=== PATIENT | female | born 1995 | race Caucasian/White ===

== ENCOUNTER 2022-05-01 11:29 | Emergency (ER) | payer BC, SELFPAY ==
--- NOTE | ~2022-05-01 | CT_ITS ---
EXAMINATION: CTA chest PE protocol DATE: 05/01/2022 15:32 INDICATION: 7weeks ; pleuritic R sided chest pain TECHNIQUE: Computed tomography angiography (CTA) of the chest was performed with 100 mL Omnipaque-350 intravenous contrast timed to evaluate the pulmonary arteries. Coronal maximum intensity projection 3D-reconstructions were created by the technologist. The dose-length product (DLP) was 760.91 mGy-cm. Automated exposure control and iterative reconstruction technique were employed. COMPARISON: None. FINDINGS: Lung parenchyma and airways: Patchy subsegmental groundglass opacities in the right lower lobe, with bandlike atelectasis. Minimal dependent left lower lobe atelectasis. Pleura: Small volume right pleural fluid collection. Thoracic inlet, axillae and chest wall: Unremarkable. Thoracic aorta: Normal. Mediastinum: Residual thymic tissue. Left hilar lymph nodes are present, not pathologic based on size criteria. No mediastinal lymphadenopathy. Heart and pericardium: Normal. Coronary artery calcifications: Absent. Upper abdomen: No significant finding. Bones: No acute osseous finding. Pulmonary arteries: Study quality: Study limited by beam hardening, quantum mottle, and borderline en hancement. No definite pulmonary emboli detected. IMPRESSION: Moderately limited study as detailed above, within those constraints, no definite CT evidence of acut e pulmonary embolus. Small right pleural effusion. Bibasilar atelectasis, greater in the right lower lobe. Reviewed, dictated and finalized at location [facility] [employer] IMPRESSION: Moderately limited study as detailed above, within those constraints, no defini te CT evidence of acute pulmonary embolus. Small right pleural effusion. Bibasi lar atelectasis, greater in the right lower lobe.
[2022-05-01 11:45] VITALS: BP 145/76; PULSE 88; RESP 16; TEMP 37.1; O2SAT 96
[2022-05-01 12:46] LABS: Basophils Percent Auto 0.2 % (0.2-1.2); Eosinophils Absolute Auto 0.1 K/mm3 (0-0.3); Eosinophils Percent Auto 1.1 % (0-4.4); Hemoglobin 13.3 g/dL (12.0-15.0); Immature Granulocyte Absolute 0.04 K/mm3 (0.00-0.031); Immature Granulocyte Percent A 0.4 % (0-0.5); Lymphocytes Absolute Auto 1.93 K/mm3 (0.9-3.2); Lymphocytes Percent Auto 19.9 % (18.3-44.2); Mean Corpuscular HGB Conc 33.3 g/dl (32-36); Mean Corpuscular Hemoglobin 28.1 pg (26-34); Mean Corpuscular Volume 84.6 fl (80-100); Mean Platelet Volume 9.7 fl (7.4-10.4); Monocytes Absolute Auto 0.8 K/mm3 (0.1-0.6); Monocytes Percent Auto 8.4 % (2.6-8.5); Neutrophils Absolute Auto 6.8 K/mm3 (1.3-6.7); Platelet Count Result 346 k/mm3 (150-375); Red Blood Count 4.73 M/mm3 (4.2-5.4); White Blood Count 9.7 K/mm3 (4.5-10.0)
[2022-05-01 12:52] LABS: Appearance Urine Cloudy (Clear); Bacteria Urine 3+ /hpf; Bilirubin Urine Negative (Negative); Blood Urine Negative (Negative); Color Urine Yellow (Yellow); Glucose Urine UA Negative (Negative); Ketones Urine Negative (Negative); Leukocyte Esterase Ur 1+ LEU/UL (Negative); Nitrate Urine Negative (Negative); Non Pathogenic Casts 0-2; Protein Urine Negative (Negative); Specific Grav Ur 1.013 (1.001-1.035); Squamous Epithelial Cell Urine Moderate /hpf (Few); Urobilinogen Urine 0.2 mg/dL (<2.0); pH Urine 6.5 (5.0-9.0)
[2022-05-01 13:00] LABS: Add Urine Microscopic? YES
[2022-05-01 13:03] LABS: Alanine Aminotransferase 27 U/L (6-35); Albumin Level 4.1 g/dL (3.5-5.1); Alkaline Phosphatase 59 U/L (38-126); Anion Gap 5 mmol/L (8-16); Aspartate Amino Transferase 23 U/L (14-36); Bilirubin,Total 0.4 mg/dL (0.2-1.3); Blood Urea Nitrogen 9 mg/dL (7-17); Calcium 8.8 mg/dL (8.4-10.2); Carbon Dioxide 23 mmol/L (22-30); Chloride 105 mmol/L (98-107); Estimated CRCL calculation 168 ml/min; Estimated Glomerular Filt Rate > 60; Glucose 97 mg/dL (65-110); Lipase 36 U/L (23-300); Potassium 3.5 mmol/L (3.4-5.0); Sodium 133 mmol/L (137-145)
--- NOTE | 2022-05-01 14:39 | ED.ABDPAIN ---
HPI - Abdominal Pain General Chief Complaint: Abdominal Pain Stated Complaint: RUQ pain Time Seen by Provider: 05/01/22 14:16 History of Present Illness HPI narrative: Patient is a 27-year-old female at approximately 7 weeks gestation presenting with right-sided chest pain. Patient states that since yesterday she has had right-sided chest pain that radiates into her right shoulder. States it is worse with deep breathing. She denies dyspnea but states that it feels difficult to take a deep breath because of the pain. No fevers or chills, cough, lightheadedness, abdominal pain, vomiting, diarrhea, dysuria, leg swelling. Denies vaginal bleeding. Related Data Allergies Allergy/AdvReac Type Severity Reaction Status Date / Time ciprofloxacin Allergy Unknown Anaphylaxis Verified 05/01/22 15:14 Review of Systems Review of Systems: All systems reviewed & are unremarkable except as noted in HPI and below PMFSH Family History Family History Other Carcinoma of colon Hypertension Social History Social History Smoking status: Never smoker Alcohol intake: current Exam Narrative: GENERAL: Well-appearing, well-nourished, and in no acute distress. HEAD: Normocephalic, atraumatic. EYES: PERRLA and EOMI. ENT: Nares clear, no rhinorrhea or epistaxis. Mucous membranes moist. NECK: Supple. CHEST: Clear to auscultation. No respiratory distress. No chest wall tenderness HEART: Regular rate and rhythm. No murmur heard. Normal peripheral pulses. ABDOMEN: Soft, nontender, nondistended EXTREMITIES: Normal range of motion. No edema. SKIN: Warm, dry, no rash. NEURO: No focal deficits. Alert and oriented x3. PSYCH: Normal mood and affect. Course Vital Signs Vital signs: Vital Signs Temperature 98.7 F 05/01/22 11:45 Pulse Rate 88 05/01/22 11:45 Respiratory Rate 16 05/01/22 11:45 Blood Pressure 145/76 H 05/01/22 11:45 Pulse Oximetry 96 05/01/22 11:45 Temperature 98.7 F 05/01/22 11:45 Pulse Rate 78 05/01/22 16:55 Respiratory Rate 16 05/01/22 16:55 Blood Pressure 139/75 05/01/22 16:55 Pulse Oximetry 98 05/01/22 16:55 MDM - Abdominal Pain MDM Narrative Medical decision making narrative: Patient is a 27-year-old female at approximately 7 weeks gestation presenting with right-sided pleuritic chest pain. Patient is slightly hypertensive, otherwise vitals are within normal limits. Exam remarkable for the above. Discussed with the patient that does increase risk of blood clots and the concern for possible PE with pleuritic chest pain. Discussed the risks and benefits of CTA and patient is agreeable to a CT at this time. CTA shows no pulmonary embolus. There is a small pleural effusion on the right. Blood work is unremarkable. UA is contaminated. Patient denies any urinary symptoms. Discussed the work-up with the patient and advised that she follow-up closely with PCP and ASTRONOMY INSTRUCTOR. Appropriate return precautions were given. Patient voiced understanding and is agreeable with plan. Discharged in stable condition. Differential Diagnosis Differential diagnosis: Likely other (pneumonia, PE, costochondritis, pleural effusion) Lab Data 05/01/22 12:33 05/01/22 12:33 Labs: Lab Results 05/01/22 05/01/22 05/01/22 Range/Units 12:28 12:33 12:33 WBC 9.7 (4.5-10.0) K/mm3 RBC 4.73 (4.2-5.4) M/mm3 Hgb 13.3 (12.0-15.0) g/dL Hct 40.0 (37.0-47.0) % MCV 84.6 (80-100) fl MCH 28.1 (26-34) pg MCHC 33.3 (32-36) g/dl RDW 14.0 (11.5-14.5) % Plt Count 346 (150-375) k/mm3 MPV 9.7 (7.4-10.4) fl Immature Gran % (Auto) 0.4 (0-0.5) % Neut % (Auto) 70.0 (45.5-73.1) % Lymph % (Auto) 19.9 (18.3-44.2) % [place] % (Auto) 8.4 (2.6-8.5) % Eos % (Auto) 1.1 (0-4.4) % Baso % (Auto) 0.2 (0.2-1.2) %
[2022-05-01 16:55] VITALS: BP 139/75; PULSE 78; RESP 16; O2SAT 98
== END 2022-05-01 16:56 | disposition home or self-care (01) ==
PROVIDERS: Preventive Medicine Aerospace Medicine; Emergency Provider Emergency Medicine
DX: O99.511 Diseases of the respiratory system complicating pregnancy, first trimester (principal); J90 Pleural effusion, not elsewhere classified; O99.411 Diseases of the circulatory system complicating pregnancy, first trimester; R07.9 Chest pain, unspecified; O09.91 Supervision of high risk pregnancy, unspecified, first trimester; I10 Essential (primary) hypertension; Z85.038 Personal history of other malignant neoplasm of large intestine; Z3A.01 Less than 8 weeks gestation of pregnancy
CPT/HCPCS: 36415; 71275; 80053; 81001; 83690; 84702; 85025; 87086; 87088; 99284; Q9967

== ENCOUNTER 2022-05-27 08:08 | Outpatient (CLI) | payer BC, SELFPAY ==
[2022-05-27 09:40] LABS: Basophils Percent Auto 0.3 % (0.2-1.2); Eosinophils Absolute Auto 0.1 K/mm3 (0-0.3); Eosinophils Percent Auto 1.1 % (0-4.4); Hematocrit 42.9 % (37.0-47.0); Hemoglobin 13.9 g/dL (12.0-15.0); Immature Granulocyte Absolute 0.05 K/mm3 (0.00-0.031); Immature Granulocyte Percent A 0.5 % (0-0.5); Lymphocytes Absolute Auto 1.85 K/mm3 (0.9-3.2); Lymphocytes Percent Auto 20.3 % (18.3-44.2); Mean Corpuscular HGB Conc 32.4 g/dl (32-36); Mean Corpuscular Hemoglobin 28.2 pg (26-34); Mean Platelet Volume 9.7 fl (7.4-10.4); Monocytes Absolute Auto 0.5 K/mm3 (0.1-0.6); Monocytes Percent Auto 5.7 % (2.6-8.5); Neutrophils Absolute Auto 6.6 K/mm3 (1.3-6.7); Neutrophils Percent Auto 72.1 % (45.5-73.1); Platelet Count Result 322 k/mm3 (150-375); Red Blood Count 4.93 M/mm3 (4.2-5.4); Red Cell Distribution Width 13.8 % (11.5-14.5); White Blood Count 9.1 K/mm3 (4.5-10.0)
[2022-05-27 10:30] LABS: Glucose 1 Hour PP 50gm Dose 96 mg/dL
[2022-05-27 10:40] LABS: HIV 1/2 Ab P24 Ag Result Negative (Negative)
[2022-05-27 12:52] LABS: Hepatitis B Surface Antigen Negative (Negative)
[2022-05-29 13:48] LABS: Rapid Plasma Reagin Non-Reactive (NonReactive)
[2022-05-30 09:06] LABS: Varicella IgG Antibody <135.00 Index (>=165.00)
[2022-05-31 14:12] LABS: CMV IgG Antibody <0.60 U/mL (<0.60)
== END 2022-05-27 08:09 | disposition home or self-care (01) ==
LOC: ANHLAB 08:09
PROVIDERS: Visit Provider Student in an Organized Health Care Education/Training Program
DX: N94.89 Other specified conditions associated with female genital organs and menstrual cycle (principal)
CPT/HCPCS: 36415; 82947; 84702; 85025; 86592; 86644; 86703; 86747; 86762; 86787; 86850; 86900; 86901; 87086; 87340; G0432

== ENCOUNTER 2022-09-04 14:22 | Outpatient (CLI) | payer BC, SELFPAY ==
[2022-09-04 15:02] LABS: Alanine Aminotransferase 22 U/L (6-35); Albumin Level 3.7 g/dL (3.5-5.1); Alkaline Phosphatase 79 U/L (38-126); Anion Gap 7 mmol/L (8-16); Aspartate Amino Transferase 22 U/L (14-36); Bilirubin,Total 0.2 mg/dL (0.2-1.3); Blood Urea Nitrogen 3 mg/dL (7-17); Carbon Dioxide 23 mmol/L (22-30); Chloride 107 mmol/L (98-107); Estimated Glomerular Filt Rate > 60; Glucose 95 mg/dL (65-110); Potassium 3.4 mmol/L (3.4-5.0); Sodium 137 mmol/L (137-145)
[2022-09-08 15:07] LABS: Chenodeoxycholic Acid 0.7 umol/L (< OR = 3.9); Cholic Acid <0.5 umol/L (< OR = 2.8); Deoxycholic Acid <0.5 umol/L (< OR = 2.3); Total Bile Acids <1.5 umol/L (< OR = 8.3)
== END 2022-09-04 14:23 | disposition home or self-care (01) ==
LOC: ANHLAB 14:23
PROVIDERS: Visit Provider Student in an Organized Health Care Education/Training Program
DX: L29.9 Pruritus, unspecified (principal); O99.719 Diseases of the skin and subcutaneous tissue complicating pregnancy, unspecified trimester; Z3A.00 Weeks of gestation of pregnancy not specified
CPT/HCPCS: 36415; 80053; 82542

== ENCOUNTER 2022-10-07 08:28 | Outpatient (CLI) | payer BC, SELFPAY ==
[2022-10-07 10:26] LABS: Hematocrit 39.4 % (37.0-47.0); Hemoglobin 12.6 g/dL (12.0-15.0); Mean Corpuscular Hemoglobin 28.1 pg (26-34); Mean Corpuscular Volume 87.8 fl (80-100); Mean Platelet Volume 9.7 fl (7.4-10.4); Platelet Count Result 318 k/mm3 (150-375); Red Blood Count 4.49 M/mm3 (4.2-5.4); Red Cell Distribution Width 14.3 % (11.5-14.5); White Blood Count 9.8 K/mm3 (4.5-10.0)
[2022-10-07 10:42] LABS: Glucose 1 Hour PP 50gm Dose 130 mg/dL
[2022-10-07 11:23] LABS: HIV 1/2 Ab P24 Ag Result Negative (Negative)
== END 2022-10-07 08:29 | disposition home or self-care (01) ==
PROVIDERS: Visit Provider Student in an Organized Health Care Education/Training Program
DX: Z34.90 Encounter for supervision of normal pregnancy, unspecified, unspecified trimester (principal); Z3A.00 Weeks of gestation of pregnancy not specified
CPT/HCPCS: 36415; 82947; 85027; 86703; G0432

== ENCOUNTER 2022-11-20 11:45 | Outpatient (CLI) | payer BC, SELFPAY ==
[2022-11-20 12:15] VITALS: BP 149/98; PULSE 84
[2022-11-20 12:30] VITALS: BP 143/85; PULSE 72
[2022-11-20 12:57] LABS: Basophils Percent Auto 0.3 % (0.2-1.2); Eosinophils Absolute Auto 0.1 K/mm3 (0-0.3); Eosinophils Percent Auto 1.3 % (0-4.4); Hematocrit 39.1 % (37.0-47.0); Hemoglobin 12.7 g/dL (12.0-15.0); Immature Granulocyte Absolute 0.07 K/mm3 (0.00-0.031); Immature Granulocyte Percent A 0.7 % (0-0.5); Lymphocytes Absolute Auto 1.82 K/mm3 (0.9-3.2); Lymphocytes Percent Auto 19.1 % (18.3-44.2); Mean Corpuscular HGB Conc 32.5 g/dl (32-36); Mean Corpuscular Hemoglobin 28.5 pg (26-34); Mean Corpuscular Volume 87.9 fl (80-100); Mean Platelet Volume 10.7 fl (7.4-10.4); Monocytes Absolute Auto 0.8 K/mm3 (0.1-0.6); Monocytes Percent Auto 8.3 % (2.6-8.5); Neutrophils Absolute Auto 6.7 K/mm3 (1.3-6.7); Neutrophils Percent Auto 70.3 % (45.5-73.1); Platelet Count Result 289 k/mm3 (150-375); Red Blood Count 4.45 M/mm3 (4.2-5.4); Red Cell Distribution Width 14.1 % (11.5-14.5); White Blood Count 9.5 K/mm3 (4.5-10.0)
[2022-11-20 13:00] VITALS: BP 145/91; PULSE 69
[2022-11-20 13:04] LABS: Add Urine Microscopic? YES; Appearance Urine Cloudy (Clear); Bacteria Urine 2+ /hpf; Bilirubin Urine Negative (Negative); Blood Urine Negative (Negative); Color Urine Yellow (Yellow); Creatinine Urine 49.5 mg/dL; Glucose Urine UA Negative (Negative); Ketones Urine Trace mg/dL (Negative); Leukocyte Esterase Ur 3+ LEU/UL (NEGATIVE); Nitrate Urine Negative (Negative); Non Pathogenic Casts 0-2; Protein Urine Negative (Negative); RBC Urine 0-2 /hpf (0-2); Specific Grav Ur 1.008 (1.001-1.035); Squamous Epithelial Cell Urine Moderate /hpf (Few); Total Protein Urine Random 29 mg/dL; Ur Ttl Prot Creatinine Ratio 0.59 mg/mg (0-0.20); Urobilinogen Urine 0.2 mg/dL (<2.0); WBC Urine 21-50 /hpf (0-3)
[2022-11-20 13:07] LABS: Alanine Aminotransferase 14 U/L (6-35); Albumin Level 3.4 g/dL (3.5-5.1); Alkaline Phosphatase 106 U/L (38-126); Anion Gap 4 mmol/L (8-16); Aspartate Amino Transferase 21 U/L (14-36); Bilirubin,Total 0.3 mg/dL (0.2-1.3); Blood Urea Nitrogen 4 mg/dL (7-17); Calcium 8.9 mg/dL (8.4-10.2); Carbon Dioxide 25 mmol/L (22-30); Chloride 106 mmol/L (98-107); Estimated Glomerular Filt Rate > 60; Glucose 74 mg/dL (65-110); Potassium 3.9 mmol/L (3.4-5.0); Sodium 135 mmol/L (137-145); Uric Acid 4.6 mg/dL (2.5-7.5)
[2022-11-20 13:16] VITALS: BP 142/88; PULSE 71
[2022-11-20 13:30] VITALS: BP 143/86; PULSE 77
[2022-11-20 13:36] VITALS: BP 149/98; PULSE 82
== END 2022-11-20 13:36 | disposition home or self-care (01) ==
LOC: ANHOBOP 11:51 → ANHOBPP 11:51
PROVIDERS: Visit Provider Student in an Organized Health Care Education/Training Program
DX: R03.0 Elevated blood-pressure reading, without diagnosis of hypertension (principal); R60.9 Edema, unspecified
CPT/HCPCS: 36415; 59025; 80053; 81001; 81050; 82570; 82575; 84156; 84550; 85025; 87086; 99199

== ENCOUNTER 2022-11-21 12:43 | Outpatient (NON) | payer BC, SELFPAY ==
[2022-11-21 12:43] VITALS: BMI 47.5
[2022-11-21 13:41] LABS: Collection Time Urine 24 HOURS
[2022-11-21 13:51] LABS: Total Volume 24 Hour Urine 2500 ml
[2022-11-21 13:57] LABS: Creatinine Clearance Urine 159.6 ml/min (75-125); Creatinine Urine 56.6 mg/dL; Patient Weight 260 Lbs
[2022-11-21 15:28] LABS: Total Protein Urine 24 Hr 390 mg/24hr (0-149); Total Protein Urine Random 15.6 mg/dL (0.0-11.9)
== END 2022-11-21 12:44 | disposition home or self-care (01) ==
LOC: ANHOBOP 12:51
PROVIDERS: Visit Provider Student in an Organized Health Care Education/Training Program
DX: R03.0 Elevated blood-pressure reading, without diagnosis of hypertension (principal); O26.899 Other specified pregnancy related conditions, unspecified trimester
CPT/HCPCS: 81050; 82575; 84156

== ENCOUNTER 2022-11-27 10:22 | Outpatient (RCR) | payer BC, SELFPAY ==
[2022-11-23 11:06] VITALS: BP 126/79; PULSE 75
[2022-11-27 10:56] VITALS: BP 136/91; PULSE 79
== END 2023-01-18 11:22 | disposition home or self-care (01) ==
LOC: ANHOBOP 10:22
PROVIDERS: Visit Provider Student in an Organized Health Care Education/Training Program
DX: O14.93 Unspecified pre-eclampsia, third trimester (principal); O26.03 Excessive weight gain in pregnancy, third trimester; Z3A.36 36 weeks gestation of pregnancy
CPT/HCPCS: 59025

== ENCOUNTER 2022-11-28 16:51 | Inpatient (IN) | payer BC, SELFPAY ==
[2022-11-28] VITALS (25 sets, daily range): BP systolic 123–179; BP diastolic 67–100; PULSE 80–106; TEMP 36.2–36.4; O2SAT 98; BMI 49.1
[2022-11-28] MEDS: DINOPROSTONE 10 MG VAG INSERT VAGINAL (17:34)
[2022-11-28 17:37] LABS: Basophils Percent Auto 0.3 % (0.2-1.2); Eosinophils Absolute Auto 0.1 K/mm3 (0-0.3); Eosinophils Percent Auto 1.1 % (0-4.4); Hematocrit 38.1 % (37.0-47.0); Hemoglobin 12.4 g/dL (12.0-15.0); Immature Granulocyte Absolute 0.06 K/mm3 (0.00-0.031); Immature Granulocyte Percent A 0.5 % (0-0.5); Lymphocytes Absolute Auto 2.17 K/mm3 (0.9-3.2); Lymphocytes Percent Auto 18.9 % (18.3-44.2); Mean Corpuscular HGB Conc 32.5 g/dl (32-36); Mean Corpuscular Hemoglobin 28.3 pg (26-34); Mean Platelet Volume 10.7 fl (7.4-10.4); Monocytes Absolute Auto 0.8 K/mm3 (0.1-0.6); Monocytes Percent Auto 6.5 % (2.6-8.5); Neutrophils Absolute Auto 8.3 K/mm3 (1.3-6.7); Neutrophils Percent Auto 72.7 % (45.5-73.1); Platelet Count Result 278 k/mm3 (150-375); Red Blood Count 4.38 M/mm3 (4.2-5.4); Red Cell Distribution Width 14.3 % (11.5-14.5); White Blood Count 11.5 K/mm3 (4.5-10.0)
--- NOTE | 2022-11-28 17:44 | LDADM ---
This patient, Chacha Ortega, was admitted to Labor/Delivery/Recovery 108 on 11/28/22 at 16:51. Plans for labor, pain management and were discussed with patient. Patient/family oriented to hospital policies and general routines including ID bracelet, bed and alarms, visiting hours, pain management, procedures, bathroom and other care routines, personal items, smoking policy, room service/diet and guest tray routines, security routines, and visiting hours. Patient/Family are encouraged to report perceived risks to care and to ask questions if they do not understand what they are told or what they should do. See OBIX for further documentation.
[2022-11-28 17:51] LABS: Alanine Aminotransferase 16 U/L (6-35); Albumin Level 3.4 g/dL (3.5-5.1); Alkaline Phosphatase 107 U/L (38-126); Anion Gap 7 mmol/L (8-16); Aspartate Amino Transferase 23 U/L (14-36); Bilirubin,Total 0.3 mg/dL (0.2-1.3); Blood Urea Nitrogen 4 mg/dL (7-17); Calcium 8.6 mg/dL (8.4-10.2); Carbon Dioxide 21 mmol/L (22-30); Chloride 106 mmol/L (98-107); Estimated CRCL calculation 213 ml/min; Estimated Glomerular Filt Rate > 60; Glucose 104 mg/dL (65-110); Potassium 3.4 mmol/L (3.4-5.0); Sodium 134 mmol/L (137-145)
[2022-11-28 17:52] LABS: Uric Acid 4.6 mg/dL (2.5-7.5)
--- NOTE | 2022-11-28 19:24 | WPDANESEPP ---
Anes - Eval Pre Procedure Procedure: labor epidural Date/Time: 11/28/22 19:24 Pre Op Diagnosis: IOL Patient Data Age: 27 Gender: F Height: 1.57 m Weight: 122 kg Last Vital Signs Temp 36.2 C L 11/28/22 18:05 Pulse 83 11/28/22 19:01 BP 167/93 H 11/28/22 19:01 Pulse Ox 98 11/28/22 18:38 O2 Del Method Room Air 11/28/22 17:43 Allergies Allergy/AdvReac Type Severity Reaction Status Date / Time ciprofloxacin Allergy Severe Anaphylaxis Verified 11/25/22 15:20 Home Medications Medication Instructions Recorded Confirmed Type vitamins-iron fumarate 65 1 tablet PO DAILY 08/15/22 11/25/22 History mg iron-folic acid 1 mg tablet Laboratory Tests 11/28/22 17:03 WBC 11.5 H K/mm3 (4.5-10.0) RBC 4.38 M/mm3 (4.2-5.4) Hgb 12.4 g/dL (12.0-15.0) Hct 38.1 % (37.0-47.0) MCV 87.0 fl (80-100) MCH 28.3 pg (26-34) MCHC 32.5 g/dl (32-36) RDW 14.3 % (11.5-14.5) Plt Count 278 k/mm3 (150-375) MPV 10.7 H fl (7.4-10.4) Immature Gran % (Auto) 0.5 % (0-0.5) Neut % (Auto) 72.7 % (45.5-73.1) Lymph % (Auto) 18.9 % (18.3-44.2) [place] % (Auto) 6.5 % (2.6-8.5) Eos % (Auto) 1.1 % (0-4.4) Baso % (Auto) 0.3 % (0.2-1.2) Lymph # (Auto) 2.17 K/mm3 (0.9-3.2) [place] # (Auto) 0.8 H K/mm3 (0.1-0.6) Eos # (Auto) 0.1 K/mm3 (0-0.3) Baso # (Auto) 0.0 K/mm3 (0.0-0.1) Abs Immat Gran (auto) 0.06 H K/mm3 (0.00-0.031) Absolute Neuts (auto) 8.3 H K/mm3 (1.3-6.7) Absolute Nucleated RBC 0.0 K/mm3 (0.0-0.012) Nucleated RBC % 0.0 % (0.0-0.2) Sodium 134 L mmol/L (137-145) Potassium 3.4 mmol/L (3.4-5.0) Chloride 106 mmol/L (98-107) Carbon Dioxide 21 L mmol/L (22-30) Anion Gap 7 L mmol/L (8-16) BUN 4 L mg/dL (7-17) Creatinine 0.40 L mg/dL (0.7-1.0) Estim Creat Clear Calc 213 ml/min Estimated GFR > 60 (59 - ) Glucose 104 mg/dL (65-110) Uric Acid 4.6 mg/dL (2.5-7.5) Calcium 8.6 mg/dL (8.4-10.2) Total Bilirubin 0.3 mg/dL (0.2-1.3) AST 23 U/L (14-36) ALT 16 U/L (6-35) Alkaline Phosphatase 107 U/L (38-126) Total Protein 6.0 L g/dL (6.3-8.2) Albumin 3.4 L g/dL (3.5-5.1) RPR Pending Blood Type A Positive Antibody Screen Negative Patient hx anesthesia problems: none Family hx anesthesia problems: none Results Review: All pre-operative results and documents have been reviewed as part of the pre-operative evaluation. [facility] Past Medical History Medical History (Updated 11/28/22 @ 19:25 by Marquita Price CRNA) Morbid obesity Pre-eclampsia Suppression of menses Surgical History Surgical History History of ankle surgery Family History Family History Mother Hypertension Father Carcinoma of colon Social History Social History Smoking status: Never smoker Alcohol intake: current Substance use: never Lack of Transportation: No Lack of Food: Never True Current Housing: I Have Housing Concerned About Future Housing: No Difficulty Paying Gas/Electric Bills: No Difficulty Paying for Meds: No Currently Unemployed: No Education: Don't Know Difficulty w/ Childcare or Family Care: No Living arrangements: other Additional living arrangements comments: Occupation/Education: occupation Gender identity (if verbalized by the patient): Female Sexual Orientation (if Verbalized by the Patient): Straight or Heterosexual Spiritual care concerns: No Exam Day of Procedure 11/28/22 19:24 Patient weight: morbidly obese Heart: regular rate and rhythm Lungs: clear to auscultation Airway: Mallampati scale Neurological: alert and oriented
[2022-11-28] MEDS: LABETALOL HCL INJ 100 MG/20 ML VIAL (20:26)
[2022-11-28] MEDS: MAGNESIUM SULF 4 GM/WATER100ML 4 GM/100 ML BAG IVPB (20:39)
[2022-11-28] MEDS: MAGNESIUM SULF 20GM/WATER500ML 500 ML 50 MG IV CONT (21:10)
[2022-11-29] VITALS (173 sets, daily range): BP systolic 113–174; BP diastolic 57–108; PULSE 72–117; RESP 15–18; TEMP 36.3–37; O2SAT 87–100
[2022-11-29] MEDS: ACETAMINOPHEN 500 MG TABLET 1000 MG PO (06:51)
--- NOTE | 2022-11-29 07:08 | P.HPUP_ITS ---
History and Physical Update Update Date/Time: 11/29/22 07:08 27 yo at 37w0d who presents for IOL for preeclampsia. Pt was noted to have mild range BP. Pt ruled in for preeclampsia on 24 hr urine protein. History and Physical has been reviewed, including an updated exam of the patie nt. There are NO changes in the patient's condition. Risks, benefits, and alternatives have been discussed and questions answered. Patient agrees to proceed with procedure. A/P: admit to L&D routine admission orders severe range BP during her admission, Magnesium started pt also received IV labetalol continue to monitor BP plan for cervidil IOL continuous EFM
[2022-11-29 07:23] LABS: Magnesium 4.2 mg/dL (1.6-2.3)
[2022-11-29] MEDS: OXYTOCIN 30 UNITS/NS 500 ML 30 UNITS/500 ML BAG 6 UNITS IV CONT (07:30)
[2022-11-29] MEDS: MAGNESIUM SULF 20GM/WATER500ML 500 ML 50 MG IV CONT ×2 (07:35→17:52)
[2022-11-29] MEDS: AMPICILLIN 2 GM/NS 100 ML 2 GM/100 ML BAG IVPB (07:39)
[2022-11-29] MEDS: LACTATED RINGERS 1,000 ML 75 ML IV CONT (11:31)
[2022-11-29] MEDS: WATER FOR IRRIGATION, STERILE 1,000 ML BOTTLE 1000 ML (11:32)
[2022-11-29] MEDS: AMPICILLIN 1 GM/NS 50 ML 1 GM/50 ML BAG IVPB ×3 (11:32→19:39)
--- NOTE | 2022-11-29 13:31 | PM.OBPNLAB ---
Pain Control Date/time seen: 11/29/22 13:31 Pain control: tolerating well Pelvic Exam Dilation (cm): 5 Effacement (%): 70 station: -3 Amniotic membrane status: Intact Contractions Monitor mode: External Contraction pattern: Regular Contraction intensity: Moderate Status status: Category ll Assessment and Plan Assessment: induction ongoing Comments: AROM for clear fluid, IUPC placed. Continue current management
[2022-11-29] MEDS: fentaNYL CITRATE INJ (*CRX) 100 MCG/2 ML VIAL 50 MCG IV PUSH ×2 (14:15→15:06)
[2022-11-29 15:37] LABS: Alanine Aminotransferase 17 U/L (6-35); Albumin Level 3.3 g/dL (3.5-5.1); Alkaline Phosphatase 124 U/L (38-126); Anion Gap 6 mmol/L (8-16); Aspartate Amino Transferase 23 U/L (14-36); Bilirubin,Total 0.3 mg/dL (0.2-1.3); Blood Urea Nitrogen 4 mg/dL (7-17); Calcium 7.2 mg/dL (8.4-10.2); Carbon Dioxide 21 mmol/L (22-30); Chloride 105 mmol/L (98-107); Estimated CRCL calculation 175 ml/min; Estimated Glomerular Filt Rate > 60; Glucose 96 mg/dL (65-110); Potassium 3.3 mmol/L (3.4-5.0); Sodium 132 mmol/L (137-145)
[2022-11-29] MEDS: fentaNYL CITRATE INJ (*CRX) 100 MCG/2 ML VIAL IV PUSH (16:16)
[2022-11-29 16:19] LABS: Rapid Plasma Reagin Non-Reactive (NonReactive)
[2022-11-29] MEDS: LABETALOL HCL INJ 100 MG/20 ML VIAL 20 MG IV PUSH (16:56)
[2022-11-29] MEDS: SODIUM CHLORIDE 0.9% IV 300 ML 600 ML I-UTERINE (18:39)
[2022-11-29] MEDS: OXYTOCIN 30 UNITS/NS 500 ML 30 UNITS/500 ML BAG 999 UNITS IV CONT (22:06)
--- NOTE | 2022-11-29 22:15 | P.PCNOB_ITS ---
OB - Delivery Note Procedure Procedure: Patient pushed for a spontaneous vaginal delivery. A nuchal cord x 1 was noted and delivered through. The fetus was delivered atraumatically and placed on the maternal abdomen. The cord was clamped and cut after 1 minute of life. The cord was double clamped and cut and a segment of cord was collected for cord gases. Cord blood was collected for blood type and Coomb's testing. The placenta delivered spontaneously and was noted to be intact. The perineum was inspected and there was a 2nd degree perineal laceration. The laceration was repaired with 3-0 vicryl in the usual fashion. The uterus was firm and good hemostasis was noted. The patient and fetus were stable in the delivery room. Events: Preeclampsia w severe features Induction method: Per Cervidil Protocol Delivery augmentation: Rupture of Membranes and Pitocin Delivery monitor: External FHT Route of delivery: Episiotomy description: None Laceration Description: Perineal - 2nd Degree Delivery repair: vicryl Specimen: No Quantitative Blood Loss (ml): 200 Anesthesia type: Epidural Disposition: Floor () Complications: No immediate complications [place] Baby Date of : 11/29/22 Time of : 22:02 Weeks of gestation at delivery: 37 gender: Female presentation: vertex position: Right Occiput Anterior Placenta delivery description: Spontaneous Cord Vessel Description: 3 Vessels and Nuchal Cord score one minute: 8 score five minutes: 9 AMG Delivery Billing Delivery Delivery: Delivery Charge
[2022-11-29] MEDS: OXYTOCIN 30 UNITS/NS 500 ML 30 UNITS/500 ML BAG 125 UNITS IV CONT (22:18)
[2022-11-30] VITALS (20 sets, daily range): BP systolic 106–158; BP diastolic 62–94; PULSE 82–101; RESP 14–18; TEMP 36.6–37.2; O2SAT 91–98
[2022-11-30] MEDS: LABETALOL HCL INJ 100 MG/20 ML VIAL 20 MG IV PUSH (00:02)
[2022-11-30] MEDS: LACTATED RINGERS 1,000 ML 75 ML IV CONT ×2 (03:52→16:50)
[2022-11-30] MEDS: MAGNESIUM SULF 20GM/WATER500ML 500 ML 50 MG IV CONT ×2 (03:53→13:52)
[2022-11-30 05:34] LABS: Hematocrit 38.2 % (37.0-47.0); Hemoglobin 12.4 g/dL (12.0-15.0)
[2022-11-30] MEDS: WITCH HAZEL 40 PADS 1 PAD TOPICAL (05:56)
[2022-11-30] MEDS: DOCUSATE SODIUM 100 MG CAPSULE PO ×2 (09:21→16:53)
[2022-11-30] MEDS: MULTIVIT/MIN/PREN/FOL AC/IRON TABLET 1 TAB PO (09:21)
--- NOTE | 2022-11-30 09:59 | WPDANLDPN2 ---
Anes-Prog Note L&D Date/Time: 11/30/22 09:59 Comfortable throughout: labor and delivery Neuraxial method: epidural Epidural/Spinal procedure site: clean & non-tender Neuro status: Neuro function grossly intact. Cardiovascular status: normal Respiratory status: normal Airway patency: baseline Mental status: baseline Post-Op hydration status: normal Vital Signs: Last Vital Signs Temp 36.6 C 11/30/22 07:45 Pulse 93 11/30/22 07:45 Resp 18 11/30/22 07:45 BP 106/62 11/30/22 07:45 Pulse Ox 95 11/30/22 07:45 O2 Del Method Room Air 11/28/22 17:43 Pain score (VAS): 3/10 I/O: Intake & Output 11/29/22 11/30/22 11/30/22 23:59 07:59 15:59 Intake Total 1550 500 Output Total 850 2200 Balance 700 -1700 Post-procedural complaints: none Patient feedback: Patient satisfied with anesthetic care.
--- NOTE | 2022-11-30 11:12 | PM.OBPNVD ---
OB - PN: Subj Subjective Date/time seen: 11/30/22 11:12 Patient comments: no complaints, pain well controlled and tolerating diet [place] feeding status: exclusively breast feeding Narrative: patient doing well this AM. No complaints. Pain is well controlled. She reports minimal bleeding. She is ambulating and voiding without difficulty. She is tolerating PO. She denies N/V, fever, chills. OB - PN: Obj Data Labs 11/30/22 05:13 11/29/22 06:50 Labs: Laboratory Results - last 24 hr 11/28/22 11/29/22 11/30/22 17:03 06:50 05:13 Hgb 12.4 Hct 38.2 Sodium 132 L Potassium 3.3 L Chloride 105 Carbon Dioxide 21 L Anion Gap 6 L BUN 4 L Creatinine 0.50 L Estim Creat Clear Calc 175 Estimated GFR > 60 Glucose 96 Calcium 7.2 L Total Bilirubin 0.3 AST 23 ALT 17 Alkaline Phosphatase 124 Total Protein 6.0 L Albumin 3.3 L RPR Non-reactive OB - PN A/P Plan day: 1 Plan: routine care Comments: patient doing well H/H stable blood pressures normal to mild range pt currently on magnesium, will continue for 24 hr PP will hold labetalol s/p magnesium, if BP are elevated will readminister continue routine care Time Spent With Patient Time: Total time spent is greater than 50% in coordination of care (as documented) at patient's floor/unit and/or counseling patient: Time with patient: less than 15 minutes Review of Systems Review of Systems: All systems reviewed & are unremarkable except as noted in HPI and below Exam Const: General: comfortable and no acute distress Resp: Effort & Inspection: normal respiratory effort Cardio: Rate: regular rate GI: GI Palp: Yes Soft to palpation and No Tenderness to palpation present (GI) Auscultation: normal bowel sounds Other: fundus firm and below umbilicus. Psych: Affect: normal affect
--- NOTE | 2022-11-30 11:13 | PM.OBDSVD ---
DS: Admitting Diagnosis Discharge Date 12/01/22 Admitting Diagnosis preeclampsia intrauterine at term DS: Discharge Diagnosis Discharge Diagnosis (1) Pre-eclampsia: Code(s): O14.90 - Unspecified pre-eclampsia, unspecified trimester Status: Acute (2) Normal vaginal delivery: Code(s): O80 - Encounter for full-term uncomplicated delivery Status: Acute OB - DS: Summary Hospital Course Hospital Course: 27-year-old G1 who presents at 37 weeks for induction of labor for preeclampsia. Patient was noted to have severe range blood pressures on admission. Patient received magnesium sulfate for prevention of the clamps she proceeded to have a spontaneous vaginal delivery. Patient continued magnesium sulfate for 24 hours . Blood pressures remained normal to mild range. Patient remained asymptomatic. The remainder of her course was uncomplicated. She was discharged home on day 2 OB Procedures : None OB Procedures Intrapartum: Spontaneous Vag Delivery OB Procedures: : None Status at Discharge Functional status at discharge: independent ambulation Overall status at discharge: patient is back to baseline Time Spent with Patient Time attestation: Total time spent providing and/or coordinating discharge services: Time spent: Less than 30 minutes Exam Const: General: comfortable and no acute distress Resp: Effort & Inspection: normal respiratory effort Auscultation: clear to auscultation bilaterally Cardio: Rate: regular rate GI: GI Palp: Yes Soft to palpation Auscultation: normal bowel sounds Other: Fundus firm below umbilicus Psych: Appearance: grossly normal Mental Status: mental status grossly normal Affect: normal affect DS: Data Data Completed and Pending Pending studies at discharge: Pending at discharge 11/29/22 22:06 Surgical [PTH] Routine Labs on day of discharge: Labs from last 24 hours 11/30/22 11/29/22 11/28/22 05:13 06:50 17:03 Hgb 12.4 Hct 38.2 Sodium 132 L Potassium 3.3 L Chloride 105 Carbon Dioxide 21 L Anion Gap 6 L BUN 4 L Creatinine 0.50 L Estim Creat Clear Calc 175 Estimated GFR > 60 Glucose 96 Calcium 7.2 L Total Bilirubin 0.3 AST 23 ALT 17 Alkaline Phosphatase 124 Total Protein 6.0 L Albumin 3.3 L RPR Non-reactive Discharge Plan Discharge Discharging Clinician: Ankit Owusu Patient Disposition: Home, Self-Care Activity: pelvic rest Diet: regular Patient Instructions: Antibiotic Form, Preeclampsia and Eclampsia After Delivery (GEN), Vaginal Delivery (DC) Stand Alone Forms: General Discharge Information Follow-up/Referrals: Ankit Owusu MD [Physician] - Discharge Medications: New ibuprofen 600 mg tablet 600 mg PO Q6H PRN (Reason: pain) Qty: 30 0RF acetaminophen 500 mg tablet 500 mg PO Q6H PRN (Reason: pain) Qty: 30 0RF Continued vit-iron fum-folic ac 65 mg iron- 1 mg tablet 1 tablet PO DAILY Date of admission: 11/28/22 16:51 Primary Care Provider: PHYSICIAN NOT ON STAFF,NONSTAFF Admitting Provider: Ankit Owusu Attending physician on admission: Ankit Owusu Condition: Stable
--- NOTE | 2022-11-30 15:28 | PC.NURSE ---
0844 -Introductions were made, then consulted with patient to assess needs related to . Mother on Magnesium Sulfate, Labetalol and post delivery at 37 weeks led the conversation with her?plans to feed?her infant, the?experience so far using a nipple shield and encouraged mother to protect her milk supply with learning hand expression or initiating pumping. Mother declined pumping at this time. Parents are attempting to rest while the infant is in the nursery and will call when returns and they are ready to practice learning and/or pumping. Resources provided for inpatient with name written on the white board. Mother voiced understanding of information and will call. Reported to the primary RN. [phone] Consulted after being called to the room for assistance. Mother works well with her infant with encouragement and education. Encouraged understanding of the benefits of skin to skin (demonstrating unwrapping and placing upright on her chest), stimulating with massage touch, changing positions to encourage wakefulness, how to watch for early feeding cues, responsive feeding, feeding on demand (aiming for 8-12 times in 24 hours, about every 2-3 hours), milk production, hand expression, building/maintaining a milk supply, duration of feeding, signs of adequate intake/output and how to record on the feeding sheet. Wash cloth was rolled and placed underneath mothers large gland with smooth nipples. When infant demonstrates feeding cues we reviewed positioning, alignment, supporting the breast to facilitate a deep latch using the teacup hold, asymmetrical latch (off-center), leading with the chin with a big, open, wide gape and body close to mother. Infant attempts with suckling appropriately but doesn't maintain. Infant holds the tongue in the middle of her mouth at times which makes for a challenging latch. Nipple care reviewed with optimal latch and good positioning. Reviewed good handwashing when or touching the breast/nipples to prevent infection. Resources used to facilitate learning were used with the tool, mom and baby guide. Practiced hand expression and finger fed the few drops to the . Mother agrees to initiate pumping after discussing the risks and benefits. [id number] Breast pump provided due to ineffective feeding. Instructions given on cleaning, care, usage, that there should be no pain, pumping schedule for milk production, collection, and storage of human milk. Parents are encouraged to record pumping schedule on the feeding sheet. Patient was assessed for correct placement, flange size 21mm (however it is not the best fit but it is what we have), to pump for comfort and nipple stretching/stimulation for adequate milk production every 3 hours (8 times in 24 hours) 1-2 times at night. Mother is encouraged to supplement pumping with hand stimulation. Nipples do not josh well with pumping or hand stimulation. After pumping was finger fed the few drops of colostrum. Mother encouraged to be consistent with stimulation and we discussed the possibility of the full milk supply expected days 3-5 and could be delayed. [id number] We reviewed positioning, alignment, and optimal latching. Together we attempted to latch infant with the football positioning on the right breast using the teacup hold. was able to latch for a few sucks. We attempted with the nipple shield and that is not an appropriate tool at this time as it did not stimulate the nipple, stretch the nipple and infant did not latch correctly to the tool. is able to latch for a few sucks but not maintain for longer than 1-2 minutes. Mother voiced understanding of skin to skin, stimulating with massage touch, responsive feedings, hand expressed colostrum, talking to infant to encourage if it has been 2 -2.5 hours since the start of the last , to call if infant does not latch, or if there is discomfort with breastfeedin
[2022-12-01 04:45] VITALS: BP 150/68
[2022-12-01 08:30] VITALS: BP 150/89; PULSE 75; RESP 16; TEMP 37; O2SAT 97
[2022-12-01] MEDS: DOCUSATE SODIUM 100 MG CAPSULE PO (09:10)
[2022-12-01] MEDS: MULTIVIT/MIN/PREN/FOL AC/IRON TABLET 1 TAB PO (09:10)
[2022-12-01 11:45] VITALS: BP 142/86; PULSE 75; RESP 16; TEMP 37; O2SAT 98
--- NOTE | 2022-12-01 12:45 | PC.NURSE ---
Pt discharged to home ambulatory accompanied by spouse and and walked to waiting car. follow up appts confirmed
--- NOTE | 2022-12-01 13:28 | PC.NURSE ---
[id number] Purposefully rounded to assess needs. Mother is okay with practicing and states she was able to get infant to latch to the right side for a few sucks on her own. Infant was placed [id number]. Once feeding cues were visualized infant was attempt to breastfeed to the right breast. is able to latch to the right breast for a few sucks using the teacup hold but doesn't maintain. Infant was placed [id number] as became disorganized. Mother led the conversation with her experience and plan to pump her breast and formula feed her infant until her milk supply comes to full volume. We have discussed the flat nipples that do not stretch much or at all and how that could potentially affect the milk supply. Mother is encouraged to practice gentle nipple stretching and hand expression along with pumping while father of baby feeds the bottle. Reminded parents to use good handwashing technique to prevent infection. Mother is feeding appropriately for growth of and understands stimulating infant to eat if needed. has had appropriate feedings in the last 24 hours meets the outcomes for weight, output and jaundice at this time. Mother states she is confident to feed her at home, when to call for assistance and denies any additional assistance or education at this time. Reinforced understanding of milk production, transition of milk, signs of adequate intake, transition of stool, prevention/relief of engorgement, plugged ducts, mastitis, responsive watching for feeding cues, the different methods of stimulating to breastfeed 2-3 hours after the start of the last feeding and when to call a provider using the resource of the mom and baby guide. Mother voiced understanding of the education shared. Reported to the primary RN.
[2022-12-02 09:21] VITALS: BP 152/92; PULSE 79; RESP 18; TEMP 37.1; O2SAT 97
== END 2022-12-01 12:45 | disposition home or self-care (01) | DRG 807 ==
LOC: ANHLDR 16:53 → ANHOB2 11-30 01:48
PROVIDERS: Obstetrics & Gynecology; Admitting Provider Student in an Organized Health Care Education/Training Program; Visit Provider Student in an Organized Health Care Education/Training Program
DX: O14.94 Unspecified pre-eclampsia, complicating childbirth (principal); Z37.0 Single live birth; O69.81X0 Labor and delivery complicated by cord around neck, without compression, not applicable or unspecified; O70.1 Second degree perineal laceration during delivery; O99.824 Streptococcus B carrier state complicating childbirth; Z3A.37 37 weeks gestation of pregnancy
CPT/HCPCS: 36415; 80053; 81050; 82575; 83735; 84156; 84550; 85014; 85018; 85025; 86592; 86850; 86900; 86901; 88307; A9270; J0290; J2590; J2795; J3010; J3475; J7030; J7120

== ENCOUNTER 2022-12-03 16:21 | Observation (INO) | payer BC, SELFPAY ==
[2022-12-03] VITALS (23 sets, daily range): BP systolic 146–188; BP diastolic 93–116; PULSE 77–95; RESP 16–23; TEMP 37.1–37.4; O2SAT 96–100
--- NOTE | ~2022-12-03 | XR_ITS ---
EXAMINATION: XR chest 1V portable Exam Date/Time: 12/03/2022 17:15 CDT HISTORY: Hypertension Comparison: 01/30/2011. RESULT: Lines, tubes, and devices: None. Lungs and pleura: Mild right costophrenic angle blunting, otherwise clear. Cardiomediastinal silhouette: Stable. Other: No acute osseous or upper abdominal finding. IMPRESSION: Possible small right pleural effusion. Reviewed, dictated and finalized at location K.
--- NOTE | 2022-12-03 16:43 | ED.GENADULT ---
HPI - General Adult General Chief complaint: Recheck/Abnormal Lab/Rx Stated complaint: HTN, POST CHILD Time Seen by Provider: 12/03/22 16:46 Source: patient and family Mode of arrival: ambulatory Limitations: no limitations History of Present Illness HPI narrative: Patient is 27 years old white female came to the emergency room by private car with her complaining of sudden onset of blurry vision, seeing spots, with blood pressure running 160?167/112 -125. On arrival to the ED blood pressure is 182/110 10 minutes later 188/116. Patient is 5 days ago. She is telling me that her blood pressure was elevated 2 weeks prior to delivery. Did not start on any medication. Currently patient is asymptomatic, patient is 1, para 1, abortions 0 Related Data Home Medications Medication Instructions Recorded Confirmed vitamins-iron fumarate 65 1 tablet PO DAILY 08/15/22 11/25/22 mg iron-folic acid 1 mg tablet Allergies Allergy/AdvReac Type Severity Reaction Status Date / Time ciprofloxacin Allergy Severe Anaphylaxis Verified 11/25/22 15:20 Review of Systems Review of Systems: All systems reviewed & are unremarkable except as noted in HPI and below PMFSH Past Medical History Medical History Morbid obesity Pre-eclampsia Suppression of menses Surgical History Surgical History History of ankle surgery Family History Family History Mother Hypertension Father Carcinoma of colon Social History Social History Smoking status: Never smoker Alcohol intake: current Substance use: never Lack of Transportation: No Lack of Food: Never True Current Housing: I Have Housing Concerned About Future Housing: No Difficulty Paying Gas/Electric Bills: No Difficulty Paying for Meds: No Currently Unemployed: No Education: Don't Know Difficulty w/ Childcare or Family Care: No Living arrangements: other Additional living arrangements comments: Occupation/Education: occupation Gender identity (if verbalized by the patient): Female Sexual Orientation (if Verbalized by the Patient): Straight or Heterosexual Spiritual care concerns: No Exam Narrative: General appearance: Well-developed, well-nourished Skin: Normal color 2+ edema lower extremity bilaterally up to the knees Head: Normocephalic, nontraumatic Eyes: Clear conjunctiva ENT: Oropharynx normal, ears normal, nose normal Neck: Supple, nontender Chest and respiratory: Airway patent, no respiratory distress, no accessory muscle use Heart: Regular rate/rhythm Abdomen: Soft, nontender, no organomegaly, quiet bowel sounds Vascular: Normal peripheral pulses, normal capillary refill. Musculoskeletal: Normal range of motion, nontender back Neurologic: Alert and oriented ?3, B[employer] BAKER is normal as tested, no gross motor deficit Neuro: General: patient oriented x3, moves all extremities, no focal motor deficits and CN's II-XI intact bilaterally Cranial nerves: Yes Nystagmus not present Speech: normal speech Gait exam (Neuro): Normal gait present Other: Normal knee, ankle reflexes, no ataxia Course Consultations Consultation #1: Omero Labetalol 200 mg 3 times daily, admit to [facility] Date: 12/03/22 Time: 19:36 Vital Signs Vital signs: Vital Signs Temperature 37.1 C 12/03/22 16:22 Pulse Rate 89 12/03/22 16:22 Respiratory Rate 16 12/03/22 16:22 Blood Pressure 182/110 H 12/03/22 16:22 Pulse Oximet
--- NOTE | 2022-12-03 16:44 | ECG_ITS ---
Measurements Intervals [place] Rate: 92 P: 36 DE: 144 QRS: 26 QRSD: 93 T: 30 QT: 345 QTc: 427 Interpretive Statements SINUS RHYTHM WITH SINUS ARRHYTHMIA NORMAL ELECTROCARDIOGRAM NO PREVIOUS ECG AVAILABLE FOR COMPARISON Electronically Signed On 12-04-2022 13:27:36 CDT by Jax Tanner M.D.
[2022-12-03] MEDS: LABETALOL HCL INJ 100 MG/20 ML VIAL 20 MG IV PUSH ×3 (16:54→18:00)
[2022-12-03 17:08] LABS: Basophils Percent Auto 0.4 % (0.2-1.2); Eosinophils Absolute Auto 0.3 K/mm3 (0-0.3); Eosinophils Percent Auto 2.8 % (0-4.4); Hematocrit 40.8 % (37.0-47.0); Hemoglobin 13.2 g/dL (12.0-15.0); Immature Granulocyte Absolute 0.12 K/mm3 (0.00-0.031); Immature Granulocyte Percent A 1.1 % (0-0.5); Lymphocytes Absolute Auto 2.52 K/mm3 (0.9-3.2); Lymphocytes Percent Auto 23.9 % (18.3-44.2); Mean Corpuscular HGB Conc 32.4 g/dl (32-36); Mean Corpuscular Hemoglobin 28.5 pg (26-34); Mean Corpuscular Volume 88.1 fl (80-100); Mean Platelet Volume 10.4 fl (7.4-10.4); Monocytes Absolute Auto 0.6 K/mm3 (0.1-0.6); Monocytes Percent Auto 5.4 % (2.6-8.5); Neutrophils Percent Auto 66.4 % (45.5-73.1); Platelet Count Result 356 k/mm3 (150-375); Red Blood Count 4.63 M/mm3 (4.2-5.4); Red Cell Distribution Width 14.3 % (11.5-14.5); White Blood Count 10.5 K/mm3 (4.5-10.0)
[2022-12-03 17:18] LABS: Alanine Aminotransferase 22 U/L (6-35); Albumin Level 3.7 g/dL (3.5-5.1); Alkaline Phosphatase 99 U/L (38-126); Anion Gap 5 mmol/L (8-16); Aspartate Amino Transferase 30 U/L (14-36); Bilirubin,Total 0.5 mg/dL (0.2-1.3); Blood Urea Nitrogen 4 mg/dL (7-17); Calcium 8.9 mg/dL (8.4-10.2); Carbon Dioxide 29 mmol/L (22-30); Chloride 104 mmol/L (98-107); Estimated CRCL calculation 174 ml/min; Estimated Glomerular Filt Rate > 60; Glucose 92 mg/dL (65-110); Potassium 3.5 mmol/L (3.4-5.0); Sodium 138 mmol/L (137-145)
[2022-12-03 17:25] LABS: INR 0.9; Prothrombin Time 12.3 Seconds (11.1-14.7)
[2022-12-03 17:26] LABS: Partial Thromboplastin Time 24.3 SECONDS (22.3-36.8)
[2022-12-03 18:29] LABS: Appearance Urine Clear (Clear); Bacteria Urine None Seen /hpf; Bilirubin Urine Negative (Negative); Blood Urine 2+ (Negative); Color Urine Yellow (Yellow); Glucose Urine UA Negative (Negative); Ketones Urine Negative (Negative); Leukocyte Esterase Ur Trace LEU/UL (Negative); Nitrate Urine Negative (Negative); Non Pathogenic Casts 0-2; Protein Urine Negative (Negative); Specific Grav Ur 1.014 (1.001-1.035); Squamous Epithelial Cell Urine None seen /hpf (Few); Urobilinogen Urine 0.2 mg/dL (<2.0)
[2022-12-03 18:31] LABS: Add Urine Microscopic? YES
[2022-12-03] MEDS: LABETALOL HCL 100 MG TABLET 200 MG PO ×2 (20:13→21:53)
--- NOTE | 2022-12-03 21:24 | OBPPTRN ---
Patient transferred to post room #288 via wheelchair from the ER. Patient is here for hypertension (patient delivered 5 days ago, 11/29). Support person present and is leaving soon to get baby for . Chacha oriented to unit, room, information board, rooming in, admission packet and security measures. Parents understand there needs to be someone stay with mother and to care for baby. Patient verbalizes understanding.
--- NOTE | 2022-12-03 23:59 | PM.IMHP ---
H&P: HPI History of Present Illness Date/Time: 12/03/22 23:59 Chief Complaint: Elevated blood pressures. Narrative: She is a P1 s/p on 11/28/22. She was induced for pre-eclampsia. Severe range blood pressures. She presented to ED with complaints of noticing blurred vision and headaches. In ED blood pressures were elevated. She received several doses of Labetolol. ED physician reported normal DTRs. Subsequently blood pressures labile. Pre-e labs negative. Negative protein. She was recommended for admission for hypertension. On the floors blood pressures elevated. Nurse reported patient was crying and upset at that time. Review of Systems Review of Systems: All systems reviewed & are unremarkable except as noted in HPI and below Constitutional: Constitutional: Reports no additional constitutional complaints Eyes: Eyes: Denies spots in vision ENT: Reports system reviewed and no additional complaints, except as documented Cardiovascular: Cardiovascular: Denies chest pain and Denies dyspnea Gastrointestinal: Gastrointestinal: Reports no additional gastrointestinal complaints Musculoskeletal: Musculoskeletal: Reports no additional musculoskeletal complaints Integumentary/Breasts: Skin/Breast: Denies breast mass and Denies rash Neurologic: Denies headache(s) PMFSH Past Medical History Medical History Morbid obesity Pre-eclampsia Suppression of menses Surgical History Surgical History History of ankle surgery Family History Family History Mother Hypertension Father Carcinoma of colon Social History Social History Smoking status: Never smoker Alcohol intake: current Substance use: never Lack of Transportation: No Lack of Food: Never True Current Housing: I Have Housing Concerned About Future Housing: No Difficulty Paying Gas/Electric Bills: No Difficulty Paying for Meds: No Currently Unemployed: No Education: Don't Know Difficulty w/ Childcare or Family Care: No Living arrangements: other Additional living arrangements comments: Occupation/Education: occupation Gender identity (if verbalized by the patient): Female Sexual Orientation (if Verbalized by the Patient): Straight or Heterosexual Spiritual care concerns: No Meds Home Medications and Allergies Home Medications Medication Instructions Recorded Confirmed Type vitamins-iron fumarate 65 1 tablet PO DAILY 08/15/22 11/25/22 History mg iron-folic acid 1 mg tablet acetaminophen 500 mg tablet 500 mg PO Q6H PRN pain #30 tabs 11/30/22 Rx ibuprofen 600 mg tablet 600 mg PO Q6H PRN pain #30 tabs 11/30/22 Rx Allergies Allergy/AdvReac Type Severity Reaction Status Date / Time ciprofloxacin Allergy Severe Anaphylaxis Verified 11/25/22 15:20 Vital Signs Vital Signs - 24 hr 12/03/22 16:22 12/03/22 16:32 12/03/22 16:33 Temperature 98.7 F Pulse Rate 89 90 Respiratory Rate 16 22 H Blood Pressure 182/110 H 188/116 H Pulse Oximetry 98 97 98 12/03/22 17:11 12/03/22 16:34 12/03/22 17:00 Temperature Pulse Rate 88 Respiratory Rate 23 H 18 Blood Pressure 167/100 H Pulse Oximetry 96 100 97 12/03/22 17:01 12/03/22 17:20 12/03/22 17:31 Temperature Pulse Rate 87 82 86 Respiratory Rate 17 19 21 H Blood Pressure 156/100 H 170/106 H 161/97 H Pulse Oximetry 99 98 97 12/03/22 17:40 12/03/22 17:50 12/03/22 18:00 Temperature Pulse Rate 80 82 93 Respiratory Rate 17 18 22 H Blood Pressure 157/103 H 171/108 H 159/105 H Pulse Oximetry 98 98 97 12/03/22 18:11 12/03/22 18:20 12/03/22 18:34 Temperature Pulse Rate 86 82 Respiratory Rate 22 H 22 H Blood Pressure 171/104 H 159/99 H 154/102 H Pulse Oximetry 97 98
--- NOTE | 2022-12-04 01:45 | PC.NURSE ---
report received from Rizwana Schuler RN
[2022-12-04 04:09] VITALS: PULSE 89
[2022-12-04] MEDS: LABETALOL HCL 100 MG TABLET 400 MG PO ×2 (04:09→11:54)
[2022-12-04 04:13] VITALS: BP 148/95; PULSE 90; RESP 18; TEMP 37; O2SAT 100
[2022-12-04 07:55] VITALS: BP 138/88; PULSE 93; RESP 18; TEMP 37.2; O2SAT 95
[2022-12-04 11:54] VITALS: PULSE 74
[2022-12-04 12:07] VITALS: BP 132/86; PULSE 89; RESP 16; TEMP 37.2; O2SAT 97
--- NOTE | 2022-12-04 13:42 | PM.DS ---
DS: Admitting Diagnosis Discharge Date 12/04/22 Admitting Diagnosis hypertension DS: Discharge Diagnosis Discharge Diagnosis (1) hypertension: Code(s): O16.5 - Unspecified maternal hypertension, complicating the puerperium Status: Acute DS: Summary Hospital Course Hospital Course: 27-year-old who admitted in the period with severe range blood pressures and preeclampsia symptoms. Patient severe range blood pressures were controlled with IV and p.o. labetalol. Serum labs were within normal limits. Patient's blood pressures remain controlled on p.o. labetalol. Patient was asymptomatic on hospital day 1. Patient was discharged home with close follow-up Status at Discharge Functional status at discharge: independent ambulation Overall status at discharge: patient is back to baseline Time Spent with Patient Time attestation: Total time spent providing and/or coordinating discharge services: Time spent: Less than 30 minutes Exam Const: General: comfortable and no acute distress Resp: Effort & Inspection: normal respiratory effort Auscultation: clear to auscultation bilaterally Cardio: Rate: regular rate GI: GI Palp: Yes Soft to palpation Auscultation: normal bowel sounds Other: Fundus firm below umbilicus Psych: Appearance: grossly normal Mental Status: mental status grossly normal Affect: normal affect DS: Data Data Completed and Pending Labs on day of discharge: Labs from last 24 hours 12/03/22 12/03/22 18:12 17:01 WBC 10.5 H RBC 4.63 Hgb 13.2 Hct 40.8 MCV 88.1 MCH 28.5 MCHC 32.4 RDW 14.3 Plt Count 356 MPV 10.4 Immature Gran % (Auto) 1.1 H Neut % (Auto) 66.4 Lymph % (Auto) 23.9 [place] % (Auto) 5.4 Eos % (Auto) 2.8 Baso % (Auto) 0.4 Lymph # (Auto) 2.52 [place] # (Auto) 0.6 Eos # (Auto) 0.3 Baso # (Auto) 0.0 Abs Immat Gran (auto) 0.12 H Absolute Neuts (auto) 7.0 H Absolute Nucleated RBC 0.0 Nucleated RBC % 0.0 PT 12.3 INR 0.9 APTT 24.3 Sodium 138 Potassium 3.5 Chloride 104 Carbon Dioxide 29 Anion Gap 5 L BUN 4 L Creatinine 0.50 L Estim Creat Clear Calc 174 Estimated GFR > 60 Glucose 92 Calcium 8.9 Total Bilirubin 0.5 AST 30 ALT 22 Alkaline Phosphatase 99 Total Protein 7.0 Albumin 3.7 Urine Color Yellow Urine Appearance Clear Urine pH 8.0 Ur Specific [place] 1.014 Urine Protein Negative Urine Glucose (UA) Negative Urine Ketones Negative Ur Blood (Man) 2+ H Urine Nitrate Negative Urine Bilirubin Negative Urine Urobilinogen 0.2 Leukocyte Esterase Rfl Trace H Urine RBC 11-20 H Urine WBC 6-10 H Ur Squamous Epith Cells None seen Urine Bacteria None seen Urine Casts 0-2 Discharge Plan Discharge Discharging Clinician: Ankit Owusu Patient Disposition: Home, Self-Care Activity: as tolerated and pelvic rest Diet: regular Patient Instructions: Antibiotic Form Stand Alone Forms: General Discharge Information Follow-up/Referrals: Ankit Owusu MD [Physician] - Keep Reg. Scheduled Appt. Discharge Medications: New labetalol 100 mg Tablet 400 mg PO Q8HR 30 Days Qty: 360 0RF Continued vit-iron fum-folic ac 65 mg iron- 1 mg tablet 1 tablet PO DAILY acetaminophen 500 mg tablet 500 mg PO Q6H PRN (Reason: pain) Qty: 30 0RF ibuprofen 600 mg tablet 600 mg PO Q6H PRN (Reason: pain) Qty: 30 0RF Date of admission: 12/03/22 19:49 Primary Care Provider: PHYSICIAN NOT ON STAFF,NONSTAFF Admitting Provider: Khurram Jamil Attending physician on admission: Khurram Jamil Condition: Stable
== END 2022-12-04 14:35 | disposition home or self-care (01) ==
LOC: ANHED 19:38 → ANHOB2 20:26
PROVIDERS: Admitting Provider Obstetrics & Gynecology; Emergency Provider Emergency Medicine; Visit Provider Student in an Organized Health Care Education/Training Program
DX: O16.5 Unspecified maternal hypertension, complicating the puerperium (principal); Z79.899 Other long term (current) drug therapy
CPT/HCPCS: 36415; 71045; 80053; 81001; 85025; 85610; 85730; 87077; 87086; 87186; 93005; 96374; 96376; 99285; A9270; G0378

== ENCOUNTER 2022-12-30 08:18 | Emergency (ER) | payer BC, SELFPAY ==
[2022-12-30 08:29] VITALS: BP 124/67; PULSE 97; RESP 18; TEMP 38.4; O2SAT 98
--- NOTE | 2022-12-30 09:04 | ED.GENADULT ---
HPI - General Adult General Chief complaint: Skin/Abscess/Foreign Body Stated complaint: breast issue tender,fever Time Seen by Provider: 12/30/22 09:00 Source: patient and RN notes reviewed Mode of arrival: ambulatory Limitations: no limitations History of Present Illness HPI narrative: Patient presents today complaining of a 2 day history of bilateral breast tenderness and pain, and fever up to 103. She gave for 1 month ago and is . She is not having any abnormal discharge from her nipples, but believes she has mastitis. She has not been taking any [id number] medication for her fever or pain. Related Data Home Medications Medication Instructions Recorded Confirmed vitamins-iron fumarate 65 1 tablet PO DAILY 08/15/22 12/30/22 mg iron-folic acid 1 mg tablet Allergies Allergy/AdvReac Type Severity Reaction Status Date / Time ciprofloxacin Allergy Severe Anaphylaxis Verified 12/30/22 08:29 Review of Systems Review of Systems: CONSTITUTIONAL: Denies body aches, chills, or sweats.+ fever EYES: Denies visual changes, redness, or discharge. ENT: Denies rhinorrhea, congestion, sore throat, or otalgia. CARDIOVASCULAR: Denies chest pain, palpitations, or edema. RESPIRATORY: Denies cough or dyspnea. GASTROINTESTINAL: Denies abdominal pain, nausea, vomiting, or diarrhea. GENITOURINARY: Denies dysuria or hematuria. SKIN: Denies rash, itching, or wounds.+ bilateral breast pain MUSCULOSKELETAL: Denies back pain, joint pain, or myalgia. NEUROLOGIC: Denies headache, numbness, tingling, or weakness. PSYCH: Denies depression or anxiety. [facility] Past Medical History Medical History Morbid obesity Pre-eclampsia Suppression of menses Surgical History Surgical History History of ankle surgery Family History Family History Mother Hypertension Father Carcinoma of colon Social History Social History Smoking status: Never smoker Alcohol intake: current Substance use: never Lack of Transportation: No Lack of Food: Never True Current Housing: I Have Housing Concerned About Future Housing: No Difficulty Paying Gas/Electric Bills: No Difficulty Paying for Meds: No Currently Unemployed: No Education: Don't Know Difficulty w/ Childcare or Family Care: No Living arrangements: other Additional living arrangements comments: Occupation/Education: occupation Gender identity (if verbalized by the patient): Female Sexual Orientation (if Verbalized by the Patient): Straight or Heterosexual Spiritual care concerns: No Comments At time of signature, I have reviewed and agree with nursing past medical, surgical, social and family history unless otherwise noted. Please see nursing chart for further information. There is no relevant family history pertinent to the presenting complaint Exam Narrative: GENERAL: Well-appearing, well-nourished, and in no acute distress. HEAD: Normocephalic, atraumatic. EYES: EOMI. No redness or drainage. Conjunctivae normal. ENT: Mucous membranes pink and moist. NECK: Normal AROM. CHEST: No respiratory distress. Mild erythema to the 1 o'clock position of the right breast and the 4 o'clock position of the left breast that are tender to palpation. Nipples appear normal. EXTREMITIES: Normal range of motion. SKIN: Warm, dry, no rash. Capillary refill normal. Normal skin turgor. NEURO: No focal deficits. Alert and oriented x3. Gait steady. PSYCH: Normal affect. No signs of depression or anxiety. Course Course Level of Care: Express Care Visit Vital Signs Vital signs: Vital Signs Temperature 101.2 F H 12/30/22 08:29 Pulse Rate 97 12/30/22 08:29 Respiratory Rate 1
== END 2022-12-30 09:14 | disposition home or self-care (01) ==
PROVIDERS: Emergency Provider Nurse Practitioner
DX: N61.0 Mastitis without abscess (principal); E66.01 Morbid (severe) obesity due to excess calories; Z68.41 Body mass index [BMI] 40.0-44.9, adult
CPT/HCPCS: 99213; G0463